=== PATIENT | female | born 1980 | race Caucasian/White ===

== ENCOUNTER 2016-07-27 11:43 | Emergency (ER) | payer BC ==
[2016-07-27 13:48] VITALS: BP 140/80
[2016-07-27] MEDS ORDERED: predniSONE TAB* 20 MG PO ONE (14:00)
--- NOTE | 2016-07-27 14:11 | UC ---
Respiratory Complaint HPI - HPI Summary HPI Summary: Patient was seen a few days ago and dx with allergic rhinitis she is complaining of increased cough and thinks she has the flu. no fever, has used afrin for nasal congestion - History of Current Complaint Chief Complaint: UCRespiratory Stated Complaint: RE CK/THROAT,SINUSES Time Seen by Provider: 07/27/16 13:52 Hx Obtained From: Patient Hx Last Menstrual Period: 07/10/16 Onset/Duration: Sudden Onset, Lasting Days Timing: Constant Severity Initially: Moderate Severity Currently: Severe Character: Cough: Nonproductive Aggravating Factors: Exertion, Deep Breaths, Recumbent Position Alleviating Factors: Nothing Associated Signs And Symptoms: Positive: URI - Risk Factors Pulmonary Embolism Risk Factors: Negative - Allergies/Home Medications Allergies/Adverse Reactions: Allergies Allergy/AdvReac Type Severity Reaction Status Date / Time No Known Allergies Allergy Verified 07/27/16 13:39 Home Medications: Home Medications Cetirizine* [ZyrTEC 10 MG TAB*] 10 mg PO DAILY PRN 07/27/16 [History Confirmed 07/27/16] PMH/Surg Hx/FS Hx/Imm Hx Previously Healthy: Yes - Surgical History Surgical History: Yes Surgery Procedure, Year, and Place: dental. Sinus - Family History Known Family History: Positive: Cardiac Disease, Hypertension, Diabetes - Social History Alcohol Use: Occasionally Alcohol Amount: "glass of wine/cider once a month" Substance Use Type: None Smoking Status (MU): Former Smoker When Did the Patient Quit Smoking/Using Tobacco: 14 years ago - Immunization History Most Recent Influenza Vaccination: 2016 Most Recent Tetanus Shot: UTD Most Recent Pneumonia Vaccination: N/A Review of Systems Constitutional: Fatigue Skin: Negative Eyes: Negative ENT: Sore Throat, Nasal Discharge Respiratory: Shortness Of Breath, Cough Cardiovascular: Negative Gastrointestinal: Negative Genitourinary: Negative Motor: Negative Neurovascular: Negative Musculoskeletal: Negative Neurological: Headache Psychological: Negative, Anxious All Other Systems Reviewed And Are Negative: Yes Physical Exam Triage Information Reviewed: Yes Appearance: Well-Nourished, Ill-Appearing, Pain Distress Vital Signs: Initial Vital Signs Temp 98.6 F 07/27/16 13:41 Pulse 94 07/27/16 13:41 Resp 16 07/27/16 13:41 BP 140/80 07/27/16 13:41 Pulse Ox 100 07/27/16 13:41 Vital Signs Reviewed: Yes Eye Exam: Normal ENT Exam: Normal ENT: Positive: Hearing grossly normal, Pharyngeal erythema, TMs normal Dental Exam: Normal Neck exam: Normal Neck: Positive: Supple, Nontender, No Lymphadenopathy Respiratory: Positive: Chest non-tender, No respiratory distress, No accessory muscle use, Wheezing, Inspiration Cardiovascular Exam: Normal Cardiovascular: Positive: RRR, No Murmur, Pulses Normal Abdominal Exam: Normal Abdomen Description: Positive: Nontender, No Organomegaly, Soft Bowel Sounds: Positive: Present Musculoskeletal Exam: Normal Musculoskeletal: Positive: Strength Intact, ROM Intact, No Edema Neurological Exam: Normal Neurological: Positive: Alert, Muscle Tone Normal Psychological Exam: Normal Skin Exam: Normal UC Diagnostic Evaluation - Laboratory O2 Sat by Pulse Oximetry: 100 Respiratory Course/Dx - Course Course Of Treatment: hx obtained, exam performed, rapid flu obtained was neg, meds reviewed, treated with prednisone and albuterol given guaifenesin with codiene for bedtime, [facility] - Differential Dx/Diagnosis Differential Diagnosis/HQI/PQRI: Asthma, Bronchitis, Influenza, Laryngitis, MRSA , Sinusitis, Tuberculosis Provider Diagnoses: allergic rhinitis. bronchospasm Discharge - Discharge Plan Condition: Stable Disposition: HOME Prescriptions: Albuterol HFA INHALER* [Ventolin HFA Inhaler*] 2 puff INH Q4H PRN #1 mdi PRN Reason: Cough guaiFENesin/CODIEN 100MG-10MG* [Robitussin AC 100Mg-10Mg*] 5 ml PO BID #100 udc MDD 10 ml predniSONE TAB* [Deltasone TAB*] 40 mg PO DAILY #14 tab Patient Education Materials: Allergies (ED), Bronchospasm (ED) Additional Instructions: Continue with the [facility] for allergies, the medication prescribed will take care of the inflammation of the bronchioles and reduce the cough. Increase your fluid intake and continue with the neti pot.
== END 2016-07-27 15:13 | disposition home or self-care (01) ==
LOC: UCCORT 11:43
DX: J30.9 Allergic rhinitis, unspecified (principal); J98.01 Acute bronchospasm; Z87.891 Personal history of nicotine dependence
CPT/HCPCS: 87502; 99212; G0463; J7512